=== PATIENT | female | born 1935 | race Caucasian/White ===

== ENCOUNTER 2016-08-14 17:27 | Emergency (ER) | payer MEDICARE ==
[2016-08-14 19:18] VITALS: BP 143/85
--- NOTE | 2016-08-14 21:30 | UC ---
Throat Pain/Nasal Vasu HPI - HPI Summary HPI Summary: 3 DAYS SINUS CONGESTION/PAIN/ABDI, MILD COUGH AND CHEST CONGESTION, SCRATCHY THROAT. HAS HAD VERY BAD SINUS INFECTIONS IN THE PAST. NO CONFUSION OR UNSTEADY GAIT. - History of Current Complaint Chief Complaint: UCRespiratory Stated Complaint: SINUS HEADACHE PAIN CONGESTION Time Seen by Provider: 08/14/16 19:28 Hx Obtained From: Patient Onset/Duration: Gradual Onset, Lasting Days - 3, Still Present Severity: Moderate Pain Intensity: 0 Pain Scale Used: 0-10 Numeric Cough: Nonproductive Associated Signs & Symptoms: Positive: Sinus Discomfort, Nasal Discharge. Negative: Dysphagia, Drooling, Wheezing, Hoarseness, Fever, Vomiting, Rash - Allergies/Home Medications Allergies/Adverse Reactions: Allergies Allergy/AdvReac Type Severity Reaction Status Date / Time environmental Allergy Eyes Uncoded 08/14/16 19:19 Itchy/Swollen/Red/Watery Home Medications: Home Medications Imipramine (NF) 10 mg PO DAILY 08/14/16 [History Confirmed 08/14/16] Lactobacillus [Probiotic] 1 cap PO DAILY 08/14/16 [History Confirmed 08/14/16] Levothyroxine TAB* [Synthroid TAB*] 125 mcg PO DAILY 08/14/16 [History Confirmed 08/14/16] PMH/Surg Hx/FS Hx/Imm Hx GI/ History: Other - IBS Other GI/ History: IBS Neurological History: TIA - Surgical History Surgical History: Yes Surgery Procedure, Year, and Place: hysterectomy. wrist surgery - Family History Known Family History: Positive: Cardiac Disease, Hypertension - Social History Occupation: Retired Lives: With Family Alcohol Use: None Substance Use Type: None Smoking Status (MU): Never Smoked Tobacco Review of Systems Constitutional: Negative Skin: Negative ENT: Sore Throat, Nasal Discharge Respiratory: Cough Cardiovascular: Negative Gastrointestinal: Negative Genitourinary: Negative Musculoskeletal: Negative Neurological: Headache - SINUS All Other Systems Reviewed And Are Negative: Yes Physical Exam Triage Information Reviewed: Yes Appearance: Well-Appearing, No Pain Distress, Well-Nourished Vital Signs: Initial Vital Signs Temp 98 F 08/14/16 19:13 Pulse 90 08/14/16 19:13 Resp 14 08/14/16 19:13 BP 143/85 08/14/16 19:13 Pulse Ox 97 08/14/16 19:13 Vital Signs Reviewed: Yes Eyes: Positive: Conjunctiva Clear. Negative: Discharge ENT: Positive: Hearing grossly normal, Pharynx normal, Nasal congestion, Nasal drainage, TMs normal, Other: - SINUS TENDERNES OVER RT MAXILARY. Negative: Tonsillar swelling, Tonsillar exudate, Trismus, Muffled/hoarse voice Neck: Positive: Supple, Nontender, No Lymphadenopathy Respiratory: Positive: Lungs clear, Normal breath sounds, No respiratory distress, No accessory muscle use Cardiovascular: Positive: RRR, No Murmur Musculoskeletal Exam: Normal Neurological: Positive: Alert, Muscle Tone Normal Psychological: Positive: Age Appropriate Behavior Skin Exam: Normal Throat Pain/Nasal Course/Dx - Differential Dx/Diagnosis Differential Diagnosis/HQI/PQRI: Pharyngitis, Sinusitis, Tonsillitis, URI Provider Diagnoses: SINUSITIS Discharge - Discharge Plan Condition: Stable Disposition: HOME Prescriptions: Azithromycin TAB* [Zithromax TAB (Z-AURE) 250 mg #6 tabs] 0 mg PO .SEE INSTRUCTIONS #6 tab guaiFENesin ER TAB [Mucinex*] 600 mg PO BID PRN #1 box PRN Reason: Cough Patient Education Materials: Sinusitis (ED) Referrals: Non Staff,Doctor [Medical Doctor] - Additional Instructions: TRY USING THE NETTI POT IN THE MORNINGS DISCUSSED. YOU MUST ALWAYS USE CLEAN WATER. REMEMBER, POSTURE IS AN IMPORTANT FACTOR IN SINUS DRAINAGE. MOVE YOUR NECK, BREATHE. ANTIBIOTICS ARE NOT CURRENTLY INDICATED FOR YOUR CONDITION. HOWEVER, IF YOUR SYMPTOMS WORSEN SIGNIFICANTLY OR PERSIST PERSIST FOR 5-7 MORE DAYS, YOU CAN START THE FOLLOWING MED: AZITHROMYCIN: Azithromycin (Zithromax) is a broad spectrum antibiotic in the same class as erythromycin. It can treat a variety of bacterial infections, but is most frequently used for respiratory infections. Azithromycin is extremely long-lasting. It accumulates in body tissues and continues to kill bacteria for many days. In order to improve absorption, Azithromycin should be taken at least one hour before or two hours after a meal. It does not have the same strong tendency to upset the stomach as erythromycin and is usually very well tolerated. Patients who have had a rash or other true allergic reactions to erythromycin should not take this medication. Call if you develop gastrointestinal distress, severe diarrhea, rash, hives, itching, or shortness of breath. ANYTIME YOU TAKE AN ANTIBIOTIC, IT IS IMPORTANT TO REPLENISH THE BODY'D SUPPLY OF "GOOD BACTERIA." YOU CAN GET GOOD BACTERIA FROM HIGH QUALITY CULTURED FOODS SUCH LOCAL YOGURT, SOUR KRAUT, JEN DIPIKA, NATURALLY FERMENTED PICKLES AND PROBIOTIC DRINKS. YOU CAN ALSO GET GOOD BACTERIA FROM A PROBIOTIC SUPPLEMENT. EXPECTORANT MEDICATION: WE SENT IN A SCRIPT FOR MUCINEX SO THAT IT IS EASIER FOR YOU TO PICK THE RIGHT MED AT THE PHARMACY. HOWEVER, YOU CAN ALSO GO TO THE [employer] [facility] AND BUY PLAIN GUAIFENESIN WITHOU BINDERS OR FILLERS. An expectorant medicine has been prescribed. This type of drug makes mucous thinner, helping the sinuses, nose, and bronchial tubes to remain free of pus and mucous. Expectorants make a cough less severe and more comfortable, and help infected sinuses drain. In general, antihistamines defeat the purpose of the expectorant by making mucous thicker. They should be avoided unless specifically recommended by your physician.
== END 2016-08-14 20:02 | disposition home or self-care (01) ==
LOC: UCCORT 17:27
DX: J32.9 Chronic sinusitis, unspecified (principal)
CPT/HCPCS: 99212; G0463

== ENCOUNTER 2017-09-02 12:33 | Emergency (ER) | payer MEDICARE ==
[2017-09-02 13:33] VITALS: BP 140/75
--- NOTE | 2017-09-02 13:42 | UC ---
Headache HPI - HPI Summary HPI Summary: 82 year old female with headache. Pt states she has had a bad h/a on and off since Wed night but hasn't been feeling well for a few weeks. Pt took Tylenol 1g today at 1100 with no relief. In the past few weeks the pts family had GI bug and then 3 days ago she had diarrhea / loose bowels for 2 days and now with worsening ABDI. Not worst ABDI of life. no vision changes. no hearing changes. no neuro changes. no balance issues. no falling. ABDI in the frontal sinus area which is common spot for her. she states she is drinking fluids . she had TIA 6 years ago but had neuro deficits / language concerns at that time but not at this time. family believes she had GI bug that caused the diarrhea, upset stomach and now worsening ABDI. she is not worried about TIA / CVA at this time . she would like to have her ABDI improved at this time since APAP not helping. She states no contra indications to NSAIDs and recent labs show normal renal function. no fever. no eye pain. no pain with eye movement. [ End ] - History Of Current Complaint Chief Complaint: UCHeadache Stated Complaint: HEADACHE, STOMACH ACHE Time Seen by Provider: 09/02/17 13:40 Hx Obtained From: Patient Onset/Duration: Gradual Onset Onset Of Symptoms: Gradual Initially Headache Was: Mild Currently Pain Is: Moderate Pain Intensity: 6 Aggravating Factor(s): Nothing Allevating Factor(s): Nothing - Allergies/Home Medications Allergies/Adverse Reactions: Allergies Allergy/AdvReac Type Severity Reaction Status Date / Time environmental Allergy Eyes Uncoded 09/02/17 13:33 Itchy/Swollen/Red/Watery Home Medications: Home Medications Aspirin [Aspir-Low] 81 mg PO DAILY 09/02/17 [History Confirmed 09/02/17] busPIRone TAB* [Buspar TAB*] 10 mg PO DAILY 09/02/17 [History Confirmed 09/02/17 ] PMH/Surg Hx/FS Hx/Imm Hx Endocrine History: Hypothyroidism Cardiovascular History: Hypertension Neurological History: TIA Psychological History: Anxiety - Surgical History Surgical History: Yes Surgery Procedure, Year, and Place: hysterectomy. wrist surgery - Family History Known Family History: Positive: Cardiac Disease, Hypertension - Social History Occupation: Retired Lives: With Family Alcohol Use: None Substance Use Type: None Smoking Status (MU): Never Smoked Tobacco Review of Systems Constitutional: Negative Skin: Negative Eyes: Negative ENT: Negative Respiratory: Negative Cardiovascular: Negative Gastrointestinal: Abdominal Pain, Diarrhea Genitourinary: Negative Motor: Negative Neurovascular: Negative Musculoskeletal: Negative Neurological: Headache Psychological: Negative Is Patient Immunocompromised?: No All Other Systems Reviewed And Are Negative: Yes Physical Exam - Summary Physical Exam Summary: pointed to frontal sinus when asked where the ABDI was. answering all questions easily and in complete sentences. Triage Information Reviewed: Yes Appearance: Well-Appearing, No Pain Distress, Well-Nourished Vital Signs: Initial Vital Signs Temp 99.4 F 09/02/17 13:26 Pulse 98 09/02/17 13:26 Resp 16 09/02/17 13:26 BP 140/75 09/02/17 13:26 Pulse Ox 94 09/02/17 13:26 Vital Signs Reviewed: Yes Eye Exam: Normal ENT Exam: Normal Dental Exam: Normal Neck exam: Normal Neck: Positive: 1 Respiratory Exam: Normal Cardiovascular Exam: Normal Abdominal Exam: Normal Abdomen Description: Positive: Nontender. Negative: CVA Tenderness (R), CVA Tenderness (L), Distended, Guarding Musculoskeletal Exam: Normal Musculoskeletal: Positive: Strength Intact, ROM Intact. Negative: No Edema Neurological Exam: Normal Neurological: Positive: Alert, Muscle Tone Normal, Other: - CN 2-12 intact. UE FROM and strength. normal sensation LE B/L. Negative: Fatigued Psychological Exam: Normal Skin Exam: Normal Re-Evaluation - Re-Evaluation First Eval Change: Improved - feels slighlty improved at this time. to go home at this time. no acute concerns. family happy with care and plan at this time. RTO if any concerns Headache Course/Dx - Course Course Of Treatment: Discussed CT scan but family and patient not interested, they believe its viral and just wanted to get mom checked out. Normal vitals. No Neuro deficits. Took APAP this AM. She was asking for another med to help reduce the ABDI so given toradol and tolerated well. checked in with pt and stating feels slightly improved. advise go home, rest, increase fluids and f/u with PCP 3-4 days and Neurology prn - Differential Dx/Diagnosis Differential Diagnosis/HQI/PQRI: TIA, Migraine, Tension Headache, Viral Syndrome Provider Diagnoses: Viral gastroenteritis. Tension headache Discharge - Sign-Out/Discharge Documenting (check all that apply): Discharge/Admit/Transfer - Discharge Plan Condition: Good Disposition: HOME Patient Education Materials: Tension Headache (ED), Gastroenteritis (DC) Referrals: Lizbet Mina MD [Primary Care Provider] - 4 Days - Billing Disposition and Condition Condition: GOOD Disposition: Home
[2017-09-02] MEDS ORDERED: Ketorolac INJ* 30 MG/ML 1 ML VIAL IM ONE (13:54)
== END 2017-09-02 14:33 | disposition home or self-care (01) ==
LOC: UCCORT 12:33
DX: A08.4 Viral intestinal infection, unspecified (principal); G44.209 Tension-type headache, unspecified, not intractable; Z86.73 Personal history of transient ischemic attack (TIA), and cerebral infarction without residual deficits; I10 Essential (primary) hypertension; F41.9 Anxiety disorder, unspecified
CPT/HCPCS: 96372; 99211; G0463; J1885